=== PATIENT | female | born 1990 | race Two or more races ===

== ENCOUNTER 2017-09-22 22:41 | Emergency (ER) | payer OTHER ==
[2017-09-22 23:18] VITALS: BP 139/83; PULSE 93; RESP 20; TEMP 97; O2SAT 100
--- NOTE | 2017-09-23 00:16 | ED PDOC ---
HPI: Dental Pain/Injury Time Seen by Provider: 09/23/17 00:16 Chief Complaint (Nursing): Dental Pain Chief Complaint (Provider): dental pain History Per: Patient Additional Complaint(s): 26-year-old female presents to emergency department with pain and swelling to left lower mandible. Patient states that she is supposed to have a root canal completed but has not done so. The root canal was started 2 months ago. As of 2 days ago patient noticed swelling and pain to her mouth. She denies fever or chills. She is tolerating liquids and solids. PMD: none Past Medical History Reviewed: Historical Data, Nursing Documentation, Vital Signs Vital Signs: Last Vital Signs Temp 97 F L 09/22/17 23:14 Pulse 93 H 09/22/17 23:14 Resp 20 09/22/17 23:14 BP 139/83 09/22/17 23:14 Pulse Ox 100 09/22/17 23:14 - Medical History PMH: No Chronic Diseases - Surgical History Surgical History: No Surg Hx - Family History Family History: States: No Known Family Hx - Living Arrangements Living Arrangements: With Friends/Others - Social History Current smoker - smoking cessation education provided: Yes Alcohol: None Drugs: Denies - Home Medications Home Medications: Ambulatory Orders Medication Instructions Recorded Clindamycin [Cleocin] 300 mg PO TID #30 cap 09/23/17 Ibuprofen [Motrin Tab] 800 mg PO Q8 PRN #20 tab 09/23/17 predniSONE [Prednisone] 20 mg PO BID #10 tab 09/23/17 - Allergies Allergies/Adverse Reactions: Allergies Allergy/AdvReac Type Severity Reaction Status Date / Time No Known Allergies Allergy Verified 09/23/17 00:16 Review of Systems ROS Statement: Except As Marked, All Systems Reviewed And Found Negative Constitutional: Negative for: Fever ENT: Positive for: Other (dental pain, facial swelling) Physical Exam - Reviewed Nursing Documentation Reviewed: Yes Vital Signs Reviewed: Yes - Physical Exam Appears: Positive for: Well, Non-toxic, No Acute Distress Skin: Negative for: Rash Eye Exam: Positive for: Normal appearance ENT: Positive for: Other (Tenderness to palpation of tooth #21 to left lower mandible, swelling noted to the lower mandible mucosa, airway patent, uvula midline, remainder of dentition intact, swelling to lower mandible suspicious for dental abscess) Cardiovascular/Chest: Positive for: Regular Rate, Rhythm Respiratory: Positive for: Normal Breath Sounds Lymphatic: Positive for: Adenopathy (Positive submental lymphadenopathy) Neurologic/Psych: Positive for: Alert, Oriented - Laboratory Results Urine POC: Negative - ECG O2 Sat by Pulse Oximetry: 100 Pulse Ox Interpretation: Normal Medical Decision Making Medical Decision Makin26 year old female with dental abscess and facial swelling Plan: test PO motrin PO clindamycin PO prednisone Rx given for clindamycin, motrin and prednisone. Patient was instructed to follow up with dentist [facility]. Smoking cessation counseling provided. Disposition - Clinical Impression Clinical Impression: Dental abscess - Patient ED Disposition Is Patient to be Admitted: No Counseled Patient/Family Regarding: Diagnosis, Need For Followup, Rx Given - Disposition Referrals: [facility] [Outside] Disposition: Routine/Home Disposition Time: 00:19 Condition: STABLE Additional Instructions: Take prescription meds as directed. Liquids and soft foods only. Follow up as soon as possible with dentist. Prescriptions: Clindamycin [Cleocin] 300 mg PO TID #30 cap Ibuprofen [Motrin Tab] 800 mg PO Q8 PRN #20 tab PRN Reason: Pain, Moderate (4-7) predniSONE [Prednisone] 20 mg PO BID #10 tab Instructions: Dental Abscess (ED) Forms: [facility] ([place]ian)
== END 2017-09-23 00:45 | disposition home or self-care (01) ==
LOC: H.ER 22:41
DX: K04.7 Periapical abscess without sinus (principal)